=== PATIENT | female | born 1995 | race Caucasian/White ===

== ENCOUNTER 2016-11-14 14:16 | Emergency (ER) | payer OTHER ==
[2016-11-14 14:24] VITALS: TEMP 98.2
--- NOTE | 2016-11-14 14:34 | EDPHY ---
H & P Stated Complaint: increased etoh last few months/ld last night/feeling lightheaded/hallucinat HPI/ROS: CHIEF COMPLAINT: Alcohol withdrawal Patient is feeling significantly better HISTORY OF PRESENT ILLNESS: Patient complains of 12 hours history of feeling lightheaded, nauseated and is if she might have a seizure. She admits to drinking 5-6 beverages per evening that include vodka or other hard liquor. She has done this for 1-2 years. She does want to stop drinking alcohol. She is concerned she is starting to feel symptoms of withdrawal. She describes seen some colors at times she knows are not there. She denies any auditory hallucinations. He denies any suicide or homicide ideation. No chest pain or shortness of breath. No fever or chills. Does occasionally feel some palpitations. Has not had anything to drink since last evening. No other associated complaints or modifying factors. REVIEW OF SYSTEMS: Ten systems reviewed and are negative unless otherwise noted in the HPI PAST MEDICAL HISTORY: Denies any medical history. SOCIAL HISTORY: Occasional smoker. Does admit to 5-6 alcoholic drinks per night FAMILY HISTORY: Noncontributory EXAMINATION General Appearance: Alert, no distress Head: normocephalic, atraumatic Eyes: Pupils equal and round, no conjunctival pallor or injection ENT, Mouth: Mucous membranes moist Neck: Normal inspection, supple, non-tender Respiratory: Lungs are clear to auscultation. No wheeze, rhonchi or crackles Cardiovascular: Tachycardic rate and regular rhythm. No murmur. Gastrointestinal: Abdomen is soft and nontender Back: non-tender, no bony abnormalities Neurological: GCS 15. Cranial nerves 2-12 grossly intact. Strength is 5/5 in all 4 extremities. No pronator drift. No dysmetria. A&O, nonfocal, normal gait. No tremor Skin: Warm and dry, no rash Extremities: Nontender, no pedal edema Psychiatric: Mood and affect normal DIFFERENTIAL DIAGNOSES: Including but not limited to alcohol abuse, alcohol withdrawal, delirium tremens , hallucinations, schizophrenia, psychosis MDM: 2:35 p.m. Alcohol abuse with 18 hours of cessation. Patient describes early symptoms of withdrawal but does not exhibit any signs of delirium tremens. She is in no acute distress. She does not appear to be encephalopathic or psychotic. Laboratory studies have been ordered, IV fluid will be administered. I will treat her with Ativan 1 mg IV for prophylaxis. Plan for treatment at the [facility]. She is comfortable with this plan and resting comfortably at this time. 3:25 p.m. Patient is feeling significantly better. Vital signs are within normal limits. She has received 1 mg Ativan. No seizure-like activity. No evidence of delirium tremens or psychosis. She is not encephalopathic. She is conversing appropriately. She would like to stop drinking, thus we discussed being [facility]. She would like to present there on her own accord. Her significant other is with her and capable of driving her there. [facility] will be [facility]. She is discharged stable condition. We discussed return to the ER for return of her symptoms, vomiting, seizure-like activity, fever. She is comfortable with this plan. SUPERVISION: This patient was independently evaluated without direct examination by the attending physician. Case was discussed with attending physician. Source: Patient Exam Limitations: No limitations - Personal History LMP (Females 10-55): 1-7 Days Ago Current Tetanus/Diphtheria Vaccine: Unsure Tetanus Vaccine Date: 2007 - Medical/Surgical History Hx Asthma: No Hx Chronic Respiratory Disease: No Hx Diabetes: No Hx Cardiac Disease: No Hx Renal Disease: No Hx Cirrhosis: No Hx Alcoholism: No Hx HIV/AIDS: No Hx Splenectomy or Spleen Trauma: No Other PMH: denies - Social History Smoking Status: Current every day smoker Constitutional: Initial Vital Signs Temperature (C) 98.2 F 11/14/16 14:21 Heart Rate 108 H 11/14/16 14:21 Respiratory Rate 22 H 11/14/16 14:21 Blood Pressure 118/83 H 11/14/16 14:21 O2 Sat (%) 97 11/14/16 14:21 O2 Delivery Mode Room Air Allergies/Adverse Reactions: No Known Allergies Allergy (Verified 11/14/16 14:20) Home Medications: Medication Instructions Recorded Depo-Provera 11/14/16 Medical Decision Making - Data Points Laboratory Results: Laboratory Results 11/14/16 14:48 11/14/16 14:48 11/14/16 11/14/16 11/14/16 14:48 14:48 14:48 WBC 9.31 10^3/uL 10^3/uL (3.80-9.50) RBC 4.43 10^6/uL 10^6/uL (4.18-5.33) Hgb 15.0 g/dL g/dL (12.6-16.3) Hct 41.8 % % (38.0-47.0) MCV 94.4 fL fL (81.5-99.8) MCH 33.9 pg pg (27.9-34.1) MCHC 35.9 g/dL g/dL (32.4-36.7) RDW 12.2 % % (11.5-15.2) Plt Count 289 10^3/uL 10^3/uL (150-400) Sodium 145 mEq/L H mEq/L (134-144) Potassium 3.9 mEq/L mEq/L (3.5-5.2) Chloride 104 mEq/L mEq/L (97-110) Carbon Dioxide 21 mEq/l L mEq/l (22-31) Anion Gap 20 mEq/L H mEq/L (8-16) BUN 16 mg/dL mg/dL (7-23) Creatinine 0.7 mg/dL mg/dL (0.6-1.0) Estimated GFR > 60 Glucose 74 mg/dL mg/dL (70-100) Calcium 10.5 mg/dL H mg/dL (8.5-10.4) Lipase 144.0 IU/L IU/L (23-300) Beta HCG, Qual NEGATIVE Medications Given: Discontinued Medications Sodium Chloride (Ns) 1,000 mls @ 0 mls/hr IV ONCE ONE; Wide Open PRN Reason: Protocol Stop: 11/14/16 14:36 Last Admin: 11/14/16 14:49 Dose: 1,000 mls Lorazepam (Ativan Injection) 1 mg IVP EDNOW ONE Stop: 11/14/16 14:36 Last Admin: 11/14/16 14:49 Dose: 1 mg Departure - Departure Disposition: Home, Routine, Self-Care Clinical Impression: Alcoh dep NEC/NOS, unspec Condition: Good Instructions: Abuse of Alcohol (ED), At-Risk Alcohol Use (ED), Chlordiazepoxide (By mouth) Additional Instructions: 1. Present to [facility] upon discharge 2. Follow up with primary care physician 3. Return to the ER for return of symptoms, fever, vomiting, seizure activity, chest pain Referrals: Cristina Sevilla MD [Primary Care Provider] - As per Instructions
[2016-11-14] MEDS ORDERED: LORazepam 2 MG/ML INJ IVP ONE (14:35)
[2016-11-14] MEDS ORDERED: NS 1,000 ML IV ONE (14:35)
[2016-11-14 14:52] VITALS: RESP 18; O2SAT 96
[2016-11-14 14:56] LABS: HEMATOCRIT 41.8 % (38.0-47.0); MEAN CELL HEMOGLOBIN 33.9 pg (27.9-34.1); MEAN CELL HEMOGLOBIN CONCENTR. 35.9 g/dL (32.4-36.7); MEAN CELL VOLUME 94.4 fL (81.5-99.8); RED BLOOD CELL COUNT 4.43 10^6/uL (4.18-5.33); RED CELL DISTRIBUTION WIDTH 12.2 % (11.5-15.2)
[2016-11-14 15:06] LABS: ANION GAP 20 mEq/L (8-16); CALCIUM 10.5 mg/dL (8.5-10.4); CARBON DIOXIDE 21 mEq/l (22-31); CHLORIDE 104 mEq/L (97-110); CREATININE 0.7 mg/dL (0.6-1.0); GLOMERULAR FILTRATION RATE > 60; GLUCOSE 74 mg/dL (70-100); POTASSIUM 3.9 mEq/L (3.5-5.2); SODIUM 145 mEq/L (134-144)
[2016-11-14] MEDS ORDERED: CHLORDIAZEPOXIDE 25MG PREPK#6 BTL TAKEHOME ONE (15:25)
[2016-11-14 15:55] VITALS: BP 118/84; PULSE 106
== END 2016-11-14 15:55 | disposition home or self-care (01) ==
DX: F10.20 Alcohol dependence, uncomplicated (principal); F17.200 Nicotine dependence, unspecified, uncomplicated; R42 Dizziness and giddiness
CPT/HCPCS: 96374; J2060

== ENCOUNTER 2016-12-04 09:09 | Emergency (ER) | payer OTHER ==
--- NOTE | 2016-12-04 09:18 | EDPHY ---
H & P Stated Complaint: uti/rx macrobid/not helping Time Seen by Provider: 12/04/16 09:15 HPI/ROS: CHIEF COMPLAINT: UTI like symptoms HISTORY OF PRESENT ILLNESS: 21-year-old female complaining of 9 days of dysuria , hematuria vaginal itching. Was seen at [facility] and given prescription for nitrofurantoin remains intermittently symptomatic by enlarged has resolved. She also notes intermittent suprapubic pain she describes feeling like vaginal pain and a firm tender mass in her vagina that she would like to have evaluated. No dyspareunia No nausea or vomiting. No flank pain. No abdominal pain. No fever or chills. No flu-like symptoms. REVIEW OF SYSTEMS: A ten point review of systems was performed and is negative with the exception of the items mentioned in the HPI PAST MEDICAL & SURGICAL HISTORY: No history of immunocompromised/suppressed condition. Diagnosed with chlamydia 3 months ago, subsequently treated SOCIAL HISTORY: Nonsmoker PHYSICAL EXAM (Prior to examination, patient consented to physical exam, hands were washed and my usual and customary physical exam procedures followed) 1) GENERAL: Well-developed, well-nourished, alert and oriented. Appears to be in no acute distress.nontoxic appearing 2) HEAD: Normocephalic, atraumatic 3) HEENT: Pupils equal, round, reactive to light bilaterally. Sclera anicteric. 4) NECK: Full range of motion, no meningeal signs. 5) LUNGS: Clear auscultation bilaterally, no wheezes, no rhonchi, no retractions. 6) HEART: Regular rate and rhythm, no murmur, no heave, no gallop. 7) ABDOMEN: No guarding, no rebound, no focal tenderness, negative McBurney's, negative Ball's, negative Rovsing's, negative peritoneal sign, I am unable to elicit any abdominal pain on exam 8) MUSCULOSKELETAL: Moving all extremities, no focal areas of tenderness, no obvious trauma. No peripheral edema or discoloration. 9) BACK: No CVA tenderness. 10) SKIN: No rash, no petechiae. 11) PELVIC (with female tech Leann at bedside): Normal female external genitalia, no lesions visualized. Speculum examination reveals no vaginal bleeding or discharge, normal vaginal rugae, os closed, no cervical motion tenderness, no adnexal tenderness or mass, DIFFERENTIAL DIAGNOSIS: [ in no particular include but limited to cystitis, pyelonephritis, urosepsis ,nephrolithiasis - Personal History LMP (Females 10-55): Extended Cycle BCP/Inj Current Tetanus/Diphtheria Vaccine: Yes Tetanus Vaccine Date: 2007 - Medical/Surgical History Hx Asthma: No Hx Chronic Respiratory Disease: No Hx Diabetes: No Hx Cardiac Disease: No Hx Renal Disease: No Hx Cirrhosis: No Hx Alcoholism: No Hx HIV/AIDS: No Hx Splenectomy or Spleen Trauma: No Other PMH: denies - Social History Smoking Status: Current every day smoker Constitutional: Initial Vital Signs Temperature (C) 36.7 C 12/04/16 09:12 Heart Rate 90 12/04/16 09:12 Respiratory Rate 18 12/04/16 09:12 Blood Pressure 124/83 H 12/04/16 09:12 O2 Sat (%) 20 L 12/04/16 09:12 O2 Delivery Mode Room Air Allergies/Adverse Reactions: No Known Allergies Allergy (Verified 12/04/16 09:11) Home Medications: Medication Instructions Recorded Depo-Provera 11/14/16 Nitrofurantoin 12/04/16 Medical Decision Making - Diagnostics Imaging Results: Imaging Impressions Pelvic/Renal Ultrasound 12/04/16 09:57 Impression: 1. Left ovarian simple cyst measuring 6.3 x 5.2 x 3.8 cm. Recommend follow-up ultrasound in 8-12 weeks. 2. No ovarian torsion. 3. No significant free fluid. 4. Bicornuate uterus. Imaging: Discussed imaging studies w/ banquet server on call Radiologist ED Course/Re-evaluation: 11:45 a.m.: Patient was re-evaluated with serial exams. She is asymptomatic while in the emergency department. We discussed her ultrasound. We discussed her urinalysis shows no bacteria or pyuria. She does complain of intermittent dysuria still. I have recommended awaiting on cultures prior to administration of antibiotics as she recently completed a course of antibiotics and at this time I do not think that the benefits outweigh the risks. She had specifically inquired about a firm tender mass that she felt in her vagina. On visual examination and on bimanual examination I do not appreciate any mass or areas of firmness nor do I appreciate cervical motion tenderness or adnexal tenderness. I re-examined her abdomen she remained soft no guarding or rebound no McBurney's point pain. I think that acute appendicitis is less than likely in this patient. Plan will be discharge with follow-up with PCP . Usual and customary discharge precautions instructions provided - Data Points Laboratory Results: 12/04/16 12/04/16 09:15 09:15 Urine Color YELLOW Urine Appearance CLEAR Urine pH 6.0 (5.0-7.5) Ur Specific [place] 1.028 (1.002-1.030) Urine Protein 1+ H (NEGATIVE) Urine Ketones NEGATIVE (NEGATIVE) Urine Blood NEGATIVE (NEGATIVE) Urine Nitrate NEGATIVE (NEGATIVE) Urine Bilirubin NEGATIVE (NEGATIVE) Urine Urobilinogen NEGATIVE EU EU (0.2-1.0) Ur Leukocyte Esterase NEGATIVE (NEGATIVE) Urine RBC 1-3 /hpf /hpf (0-3) Urine WBC 1-3 /hpf /hpf (0-3) Ur Epithelial Cells TRACE /lpf /lpf (NONE-1+) Urine Mucus TRACE /lpf /lpf (NONE-1+) Urine Glucose NEGATIVE (NEGATIVE) Urine Test NEGATIVE Departure - Departure Disposition: Home, Routine, Self-Care Clinical Impression: Pelvic pain Condition: Good Instructions: Pelvic Pain in Women (ED) Additional Instructions: Return to the emergency department immediately if you develop new or worsening pain, abdominal pain, if you develop pain with urination, fevers, or any other symptoms that concern you Referrals: Cristina Sevilla MD [Primary Care Provider] - As per Instructions
[2016-12-04 09:52] LABS: COLOR YELLOW; LEUKOCYTE ESTERASE,URINE NEGATIVE (NEGATIVE); NITRITE,URINE NEGATIVE (NEGATIVE)
[2016-12-04 09:57] LABS: MUCUS TRACE /lpf (NONE-1+)
[2016-12-04 11:56] VITALS: BP 122/75; PULSE 81; RESP 16; TEMP 97.7; O2SAT 98
[2016-12-05 13:16] LABS: CHLAMYDIA AMPLIFICATION GENPRB NEGATIVE (NEGATIVE)
== END 2016-12-04 11:57 | disposition home or self-care (01) ==
DX: R10.2 Pelvic and perineal pain (principal); F17.200 Nicotine dependence, unspecified, uncomplicated

== ENCOUNTER 2017-05-28 10:04 | Emergency (ER) | payer OTHER ==
[2017-05-28 10:18] VITALS: BP 120/81; PULSE 128; RESP 98; TEMP 97.9
--- NOTE | 2017-05-28 10:22 | EDPHY ---
H & P Stated Complaint: tampon "stuck" in vagina Time Seen by Provider: 05/28/17 10:21 HPI/ROS: HPI: This is a 21-year-old female who presents with Chief Complaint: Tampon stuck in vagina Location: Vagina Quality: Tampon Duration: Less than 8 hr Signs and Symptoms: no fever, no nausea, no vomiting, no hematemesis, no blood in stool, no abdominal bloating, no diarrhea, no back pain, no urinary symptoms , no vaginal discharge, no indigestion, no chest pain, no shortness of breath Timing: Acute Severity: Mild Context: Patient reports that she was drinking alcohol last night and is currently on her menses. She accidentally left her tampon in since around midnight. She was unable to feel the string this morning so she came to the emergency room to have her tampon removed. She denies any vaginal discharge/ pelvic pain/back pain/urinary symptoms/nausea/vomiting/fever. No concern for STD. Modifying Factors: None Comment: ROS: see HPI Constitutional: No fever, no chills, no weight loss Eyes: No blurred vision Respiratory: No shortness of breath, no cough Cardiovascular: No chest pain, no palpitations Gastrointestinal: No nausea, no vomiting, no diarrhea, no hematemesis, no blood in stool Genitourinary: No dysuria, no blood in urine Extremities: No myalgias, no edema Neurologic: No weakness, no numbness Skin: No rashes, no petechiae Hematologic: No bruising, no bleeding MEDICAL/SURGICAL/SOCIAL HISTORY: Medical history: Generally healthy. Does not take any regular medications. Surgical history: Denies Social history: Student. CONSTITUTIONAL: Extremely well-appearing but nervous white young adult, awake and alert, no obvious distress HEENT: Atraumatic and normocephalic, PERRL, EOMI. Tympanic membranes clear. Oropharynx clear, no exudate and moist pink mucosa. Airway patent. No lymphadenopathy. No meningismus. Cardiovascular: Normal S1/S2, tachycardia, regular rhythm, without murmur rub or gallop. PULMONARY/CHEST: Symmetrical and nontender. Clear to auscultation bilaterally. Good air movement. No accessory muscle usage. ABDOMEN: Soft, nondistended, nontender, no rebound, no guarding, no peritoneal signs, no masses or organomegaly. No CVAT. PELVIC: normal external genitalia, normal cervix, cervical os was closed, no cervical motion tenderness, no adnexal mass, no discharge, no bleeding; blood soaked tampon removed from gutter on right side of cervix. The exam was performed with a registered nurse renal. EXTREMITIES: 2/2 pulses, strength 5/5, no deformities, no clubbing, no cyanosis or edema. NEUROLOGICAL: no focal neuro deficits. GCS 15. SKIN: Warm and dry, no erythema. no rash. Good capillary refill. Source: Patient Exam Limitations: No limitations - Personal History LMP (Females 10-55): 1-7 Days Ago Tetanus Vaccine Date: 2007 - Medical/Surgical History Hx Asthma: No Hx Chronic Respiratory Disease: No Hx Diabetes: No Hx Cardiac Disease: No Hx Renal Disease: No Hx Cirrhosis: No Hx Alcoholism: No Hx HIV/AIDS: No Hx Splenectomy or Spleen Trauma: No Other PMH: denies - Social History Smoking Status: Current every day smoker Constitutional: Initial Vital Signs Temperature (C) 36.6 C 05/28/17 10:16 Heart Rate 128 H 05/28/17 10:16 Respiratory Rate 98 H 05/28/17 10:16 Blood Pressure 120/81 H 05/28/17 10:16 O2 Delivery Mode Room Air Allergies/Adverse Reactions: No Known Allergies Allergy (Verified 12/04/16 09:11) Home Medications: Medication Instructions Recorded Adderall 10 MG (*) 05/28/17 Depo-Provera 05/28/17 Medical Decision Making Procedures: Procedure: Foreign body removal from vagina. Anesthesia: None required After verbal consent was obtained, the tampon was removed from vagina. The foreign body was removed manually with forceps under direct visualization. There were no complications. The procedure was performed by myself and with a registered nurse renal. ED Course/Re-evaluation: Retained tampon removed. No signs of sepsis/bacterial vaginosis/candidiasis/PID. This patient was seen under the supervision of my secondary supervising physician. I evaluated care for this patient independently. Differential Diagnosis: Differential diagnosis includes but is not related to pelvic inflammatory disease, sepsis, toxic shock, bacterial vaginosis, foreign body. Departure - Departure Disposition: Home, Routine, Self-Care Clinical Impression: Retained tampon Qualifiers: Encounter type: initial encounter Qualified Code(s): T19.2XXA - Foreign body in vulva and vagina, initial encounter Condition: Good Instructions: Vaginal Foreign Body (ED) Additional Instructions: Please do not use tampons during your menstruation for the rest of this month. Use maxi pads instead. You may start to use tampons next month during your menses. If at any time you develop vaginal itching/discharge, pelvic pain or fever greater than 102 F; return to the emergency room. Referrals: [facility],. [Clinic] - As per Instructions
== END 2017-05-28 11:02 | disposition home or self-care (01) ==
DX: T19.2XXA Foreign body in vulva and vagina, initial encounter (principal); F17.200 Nicotine dependence, unspecified, uncomplicated; X58.XXXA Exposure to other specified factors, initial encounter

== ENCOUNTER 2017-09-07 16:40 | Emergency (ER) | payer OTHER ==
--- NOTE | 2017-09-07 16:52 | EDPHY ---
H & P Stated Complaint: binge drinking x 4 months last drink 4 days ago-wants "detox" Time Seen by Provider: 09/07/17 16:51 - Personal History LMP (Females 10-55): Extended Cycle BCP/Inj Current Tetanus/Diphtheria Vaccine: No Tetanus Vaccine Date: 2007 - Medical/Surgical History Hx Asthma: No Hx Chronic Respiratory Disease: No Hx Diabetes: No Hx Cardiac Disease: No Hx Renal Disease: No Hx Cirrhosis: No Hx Alcoholism: No Hx HIV/AIDS: No Hx Splenectomy or Spleen Trauma: No Other PMH: ADD - Social History Smoking Status: Current every day smoker Constitutional: Initial Vital Signs Temperature (C) 36.9 C 09/07/17 16:47 Heart Rate 102 H 09/07/17 16:47 Respiratory Rate 18 09/07/17 16:47 Blood Pressure 126/93 H 09/07/17 16:47 O2 Sat (%) 98 09/07/17 16:47 O2 Delivery Mode Room Air Allergies/Adverse Reactions: No Known Allergies Allergy (Verified 12/04/16 09:11) Home Medications: Medication Instructions Recorded Adderall 10 MG (*) 05/28/17 Depo-Provera 05/28/17 Triazolam [Halcion 0.25MG (*)] 0.25 mg PO HS PRN #14 tab 09/07/17 Medical Decision Making ED Course/Re-evaluation: CHIEF COMPLAINT: Alcohol intoxication. HISTORY OF PRESENT ILLNESS: The patient is 22 y/o female who is an alcoholic and has been binge drinking for the past 4 months. For the last several weeks she has been tapering the amount of alcohol that she has been consuming and last drank 4 days ago. Due to the alcohol withdrawal she has had night sweats, difficulty sleeping, and dizziness during the day. The patient's mother is requesting inpatient tretamine and the patient is requesting outpatient treatment. Previously she has successfully detoxed from alcohol without the use of Librium or Valium. Denies history of alcohol withdrawal seizures. Denies decreased appetite, nausea or vomiting. Patient denies any injuries denies loss of consciousness denies any recent trauma. Patient denies co-ingestion. Patient denies suicidal or homicidal behavior. REVIEW OF SYSTEMS: A 10 point review of systems was performed and is negative with the exception of the elements mentioned in the history of present illness. PHYSICAL EXAM: General Appearance: Alert, well hydrated, appropriate, and non-toxic appearing. Head: Atraumatic without scalp tenderness or obvious injury Eyes: Pupils equal, round, reactive to light and accommodation, EOMI, no trauma , no injection. Ears: Clear bilaterally, no perforation, normal landmarks Nose: Atraumatic, no rhinorrhea, clear. Throat: There is no erythema or exudates, no lesions, normal tonsils, mucus membranes moist. Neck: Supple, nontender, no lymphadenopathy. Respiratory: No retractions, no distress, no wheezes, and no accessory muscle use. Lungs are clear to auscultation bilaterally. Cardiovascular: Regular rate and rhythm, no murmurs, rubs, or gallops. Bilateral carotid, radial, dorsalis pedis, and posterior tibial pulses intact. Good capillary refill all extremities. Gastrointestinal: Abdomen is soft, nontender, non-distended, no masses, no rebound, no guarding, no peritoneal signs. Musculoskeletal: Normal active ROM of all extremities, atraumatic. Neurological: Alert, appropriate, and interactive. Nonfocal neuro. Skin: No rashes, good turgor, no nodules on palpation. PAST MEDICAL HISTORY: Alcoholism, ADD PAST SURGICAL HISTORY: Denies SOCIAL HISTORY: Lives in [place], student at , single DIFFERENTIAL DIAGNOSIS: The differential diagnosis for the patient's insomnia and night sweats included but was not limited to alcohol withdrawal, hypoglycemia, infectious process, electrolyte abnormality, head injury, neurologic process, anemia, cardiac process, and intoxicants. MEDICAL DECISION MAKING: The patient is 22 y/o female who is an alcoholic and has been binge drinking for the past 4 months and last consumed alcohol 4 days ago. She is requesting outpatient treatment but is refusing inpatient treatment. I have discussed Vivitrol injection or oral Naloxone for her alcohol cravings. Labs ordered. 1726: Patient has elevated liver enzymes. 1727: Reassessed patient and discussed laboratory findings. I have prescribed her Halcion for her insomnia. I have also prescribed her a pre-pack of Ativan as the pharmacy is closed. We're discharging the patient in stable condition with resources for alcohol rehab including the [facility]. - Data Points Laboratory Results: Laboratory Results 09/07/17 17:00 09/07/17 17:00 09/07/17 09/07/17 09/07/17 17:00 17:00 17:00 WBC 5.68 10^3/uL 10^3/uL (3.80-9.50) RBC 4.58 10^6/uL 10^6/uL (4.18-5.33) Hgb 15.6 g/dL g/dL (12.6-16.3) Hct 43.9 % % (38.0-47.0) MCV 95.9 fL fL (81.5-99.8) MCH 34.1 pg pg (27.9-34.1) MCHC 35.5 g/dL g/dL (32.4-36.7) RDW 12.2 % % (11.5-15.2) Plt Count 181 10^3/uL 10^3/uL (150-400) MPV 9.0 fL fL (8.7-11.7) Neut % (Auto) 62.9 % % (39.3-74.2) Lymph % (Auto) 23.9 % % (15.0-45.0) [place] % (Auto) 10.6 % % (4.5-13.0) Eos % (Auto) 1.9 % % (0.6-7.6) Baso % (Auto) 0.5 % % (0.3-1.7) Nucleat RBC Rel Count 0.0 % % (0.0-0.2) Absolute Neuts (auto) 3.57 10^3/uL 10^3/uL (1.70-6.50) Absolute Lymphs (auto) 1.36 10^3/uL 10^3/uL (1.00-3.00) Absolute Monos (auto) 0.60 10^3/uL 10^3/uL (0.30-0.80) Absolute Eos (auto) 0.11 10^3/uL 10^3/uL (0.03-0.40) Absolute Basos (auto) 0.03 10^3/uL 10^3/uL (0.02-0.10) Absolute Nucleated RBC 0.00 10^3/uL 10^3/uL (0-0.01) Immature Gran % 0.2 % % (0.0-1.1) Immature Gran # 0.01 10^3/uL 10^3/uL (0.00-0.10) Sodium 144 mEq/L mEq/L (135-145) Potassium 3.7 mEq/L mEq/L (3.3-5.0) Chloride 102 mEq/L mEq/L (97-110) Carbon Dioxide 24 mEq/l mEq/l (22-31) Anion Gap 18 mEq/L H mEq/L (8-16) BUN 8 mg/dL mg/dL (7-23) Creatinine 0.7 mg/dL mg/dL (0.6-1.0) Estimated GFR > 60 Glucose 95 mg/dL mg/dL (70-100) Calcium 10.0 mg/dL mg/dL (8.5-10.4) Total Bilirubin 1.1 mg/dL mg/dL (0.1-1.4) Conjugated Bilirubin 0.5 mg/dL mg/dL (0.0-0.5) Unconjugated Bilirubin 0.6 mg/dL mg/dL (0.0-1.1) AST 248 IU/L H IU/L (14-46) ALT 285 IU/L H IU/L (9-52) Alkaline Phosphatase 81 IU/L IU/L (38-126) Total Protein 8.6 g/dL H g/dL (6.3-8.2) Albumin 5.3 g/dL H g/dL (3.5-5.0) Lipase 407 IU/L H IU/L (23-300) Beta HCG, Qual NEGATIVE Departure - Departure Disposition: Home, Routine, Self-Care Clinical Impression: Alcohol abuse, Elevated LFTs Condition: Good Instructions: Abuse of Alcohol (ED) Additional Instructions: 1. Please refrain from abusing alcohol. 2. Take Halcion as prescribed. 3. Return to the emergency department immediately for fever, vomiting, confusion , headache, abdominal pain or other worsening of condition. 4. Followup with your primary care physician within 72 hours for reevaluation. Referrals: NONE *PRIMARY CARE P,. [Primary Care Provider] - As per Instructions [facility] 24 Hours [Outside] - As per Instructions Prescriptions: Triazolam [Halcion 0.25MG (*)] 0.25 mg PO HS PRN #14 tab PRN Reason: Sleep/Insomnia Report Scribed for: Prieto Callahan Report Scribed by: Beth Harris Date of Report: 09/07/17 Time of Report: 16:55
[2017-09-07 17:14] LABS: PLATELET COUNT 181 10^3/uL (150-400)
[2017-09-07] MEDS ORDERED: LORAZEPAM 1 MG PREPACK#4 BTL TAKEHOME ONE (18:18)
[2017-09-07 18:23] VITALS: BP 124/81
--- NOTE | 2017-09-08 11:57 | ASDISCHSUM ---
Discharge Information Plan Status:Home with No Needs Medically Cleared to Leave: Discharge Date:09/07/2017 06:22 PM CM D/C Disposition:Home, Routine, Self-Care ADT D/C Disposition:Home, Routine, Self-Care Projected Discharge Date:09/07/2017 06:22 PM Transportation at D/C:Family Discharge Delay Reason: Follow-Up Date:09/07/2017 06:22 PM Discharge Slot: Final Diagnosis: Placement Information Patient Contact Information Contact Name:BARBRAALVIN Relationship:Mother Address:[address] Work Phone: City:[facility] Phone: [facility]/Zip Code:[place] [address] Email: Financial Information Financial Class:[employer] [facility] Primary Plan Number:[id number] Secondary Plan Desc: Secondary Plan Number: Assessment Information [facility] CM Progress Note CM Note CM Note Notes: Pt presented to the ED through triage for binge drinking the last 4 months and requesting assistance w/getting into detox or rehab program. Pt's last drink was 4 days ago and after ED assessment, is medically clear and does not require acute medical detox at this time. Pt's mother, Aditi Whelan, arrived to the ED later and we all discussed that pt would need to follow-up outpatient at this time. Pt and Aditi were provided a resource list of various inpatient, intensive outpatient, and outpatient rehabilitation resources. Pt just completed her first year as a student so she was also provided information re: [facility]. 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 Pt plans to leave in a couple of weeks for a couple of months to work on a [employer] outing. Pt's mother is very concerned about pt being well enough and outside of acute withdrawal risk before leaving for months in the [facility]. ED MD Dr Callahan discussed the possibility of Vivitrol injections or Naloxone for help with cravings. Pt was also provided a prescription for Halcion and later provided a pre-pack for Ativan for her continued night sweats and insomnia. Pt has an appt with a psychologist on Saturday and also an appt with her PCP at [facility] on Saturday. Pt and Aditi both agreeable and comfortable with this plan. CM available for further assistance if needed. Date Signed: 09/08/2017 11:54 AM Electronically Signed By:Saranya Segal RN Intervention Information Intervention Type:Substance Abuse Treatment Date of Service:09/08/2017 11:56 AM Patient Type:Emergency Room Staff Member:SALLY Segal [place] Hours:0.25 Discipline:Director Compliance Severity: Comment: Intervention Type:Community Resources Date of Service:09/08/2017 11:56 AM Patient Type:Emergency Room Staff Member:SALLY Segal [place] Hours:0.25 Discipline:Director Compliance Severity: Comment:
== END 2017-09-07 18:22 | disposition home or self-care (01) ==
DX: F10.10 Alcohol abuse, uncomplicated (principal); R94.5 Abnormal results of liver function studies; F17.200 Nicotine dependence, unspecified, uncomplicated